=== PATIENT | male | born 2000 | race African-American/Black ===

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

== ENCOUNTER 2025-01-29 07:09 | Emergency (ER) | payer OTHER ==
[~2025-01-29] VITALS: Ht 180.3 cm; Wt 88.9 kg
[~2025-01-29 07:09] MED LIST changes: +HYDROXYZINE HCL10 MG PO; +METHYLPHENIDATE20 M1 PO; +METHYLPHENIDATE20 M4 PO; +MINIPRESS2 MG PO
--- OUTSIDE RECORDS SUMMARY | 2025-01-29 07:16 | XMS ---
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 Physician Banquet Steward 09/21/2018-Current PHONE: Unknown -Vicente DMD Dentist: Machine Buffer Current PHONE: [phone] [facility] Current FAMILY PHONE: [phone] Care Guidelines exist for the following facilities: [facility] ( 08/24/2019 ) Ethan VISIT COUNT (12 MO.) 2 PATRICIA Salas TOTAL 2 NOTE: Visits indicate total known visits. ED/UCC VISIT TRACKING (12 MO.) 01/29/2025 07:09 PATRICIA Epps OR TYPE: Emergency COMPLAINT: - EYE PAIN 01/28/2025 03:55 PATRICIA Epps OR TYPE: Emergency COMPLAINT: - RT CHEEK REDNESS INPATIENT VISIT TRACKING (12 MO.) No inpatient visits to display in this time frame [email or web address]
[2025-01-29] MEDS ORDERED: CEPHALEXIN MONOHYDRATE 500 MG CAP PO ONE (08:00)
[2025-01-29] MEDS ORDERED: RISPERIDONE3 MG PO (08:05)
[2025-01-29] MEDS ORDERED: RISPERIDONE2 MG PO (08:05)
[2025-01-29] MEDS ORDERED: CEPHALEXIN500 M1 PO (08:06)
[2025-01-29 08:15] VITALS: BP 142/73
== END 2025-01-29 08:15 | disposition home or self-care (01) ==
LOC: ED 07:09
DX: L03.211 Cellulitis of face (principal); Z79.899 Other long term (current) drug therapy
CPT/HCPCS: 99283; A9270